=== PATIENT | female | born 1980 | race Caucasian/White ===

== ENCOUNTER 2020-09-15 17:53 | Outpatient (REF) | payer BC, SELFPAY | END 2020-09-15 17:54 | disposition home or self-care (01) | LOC: HO.LAB 17:53 | PROVIDERS: PCP Pediatrics; Visit Provider Internal Medicine | DX: Z20.828 Contact with and (suspected) exposure to other viral communicable diseases (principal) | CPT/HCPCS: C9803; U0003 ==

== ENCOUNTER 2021-04-22 10:08 | Emergency (ER) | payer BC, SELFPAY ==
--- NOTE | ~2021-04-22 | CT_ITS ---
EXAMINATION: CT ABDOMEN AND PELVIS WITH CONTRAST CLINICAL INFORMATION: Left lower quadrant pain COMPARISON: None TECHNIQUE: Multidetector volumetric images were obtained from the superior aspect of the liver through the pubic symphysis following administration 85 mL of Omnipaque 350 intravenous contrast. Sagittal and coronal reformatted images were obtained on the technologist's workstation. Oral contrast: No This CT examination was performed using dose optimization techniques as appropriate, variously including the following: *Automated exposure control *Adjustment of mA and/or kV according to patient size (this includes techniques or standardized protocols for targeted exams where dose is matched to indication/reason for exam; i.e. extremities or head) *Use of iterative reconstruction technique DLP: 1000 mGy-cm FINDINGS: LUNG BASES: The visualized lung bases are unremarkable. Symmetrical prominence of the hemidiaphragms anteriorly without any discrete lesion. This is likely within normal variation. LIVER, GALLBLADDER, AND BILIARY TREE: The liver is normal in size, shape, and attenuation. No focal hepatic lesion or biliary ductal dilatation is present. The gallbladder is unremarkable with no evidence of radiopaque gallstones, gallbladder wall thickening, or obvious pericholecystic inflammatory changes. PANCREAS: Unremarkable. SPLEEN: Unremarkable. ADRENAL GLANDS: Unremarkable. KIDNEYS AND URETERS: The kidneys are normal in size, shape, and attenuation. No hydronephrosis, hydroureter, or calculi seen. No perinephric stranding. BLADDER: Unremarkable. GASTROINTESTINAL TRACT: The small and large bowel are unremarkable. The appendix is unremarkable. ABDOMINAL WALL: Small fat-containing umbilical hernia along with a small amount of fluid within the hernia sac. No bowel involvement. LYMPH NODES: Normal. VASCULAR: Unremarkable. PELVIC VISCERA: There is a right-sided ovarian unilocular cystic-appearing lesion measuring up to 5.1 cm. No definite enhancing components. Uterus is deviated to the left of midline. No acute inflammatory changes. No hydrosalpinx. Prominence of endometrium which may related to secretory phase of the menstrual cycle. OSSEOUS STRUCTURES: Unremarkable. CT/CT abdomen pelvis w con IMPRESSION: Normal appendix. No evidence for diverticular disease. There is a 5.1 cm right ovarian cystic lesion. Based on symptomatology, ultrasound correlation should be considered.
[2021-04-22 10:21] VITALS: BP 127/76; PULSE 76; RESP 18; TEMP 36.8; O2SAT 98; BMI 39.1
[2021-04-22 11:05] VITALS: BP 140/86; PULSE 71; RESP 20; TEMP 37; O2SAT 98
--- NOTE | 2021-04-22 11:06 | ED_ITS ---
HPI - Abdominal Pain General Chief Complaint: Abdominal Pain Stated Complaint: abd pain Time Seen by Provider: 04/22/21 11:05 Source: patient Mode of arrival: ambulatory Limitations: no limitations History of Present Illness MD elicited complaint: abdominal pain Pertinent past history: other (GERD) Pain Consistency: constant Location: epigastric Severity: moderate Quality: fullness and dull Radiation: epigastric Migration to: no migration Exacerbating factors: eating Relieving factors: nothing Context: history of similar episodes (but now has loose stools and L sided pain which is new) Associated symptoms: nausea, vomiting and diarrhea Related Data Previous Rx's Medication Instructions Recorded dicyclomine 20 mg PO TID PRN #30 tab 04/22/21 ondansetron 4 mg PO Q8H PRN #20 tab 04/22/21 sucralfate [Carafate] 5 ml PO TID #1000 ml 04/22/21 Allergies Allergy/AdvReac Type Severity Reaction Status Date / Time Penicillins Allergy Rash Verified 04/22/21 10:21 Review of Systems Review of Systems Constitutional : No Weight loss, No Fever, No Chills ENT/Mouth : No sore throat, No Rhinorrhea Eyes: No Swelling, No Redness Cardiovascular : No Chest Pain, No SOB, NoEdema Respiratory : No Cough, No Sputum, No Wheezing Gastrointestinal : Positive Nausea, Positive Vomiting, positive Diarrhea, positi ve abdominal Pain, No Hematochezia, No Melena Genitourinary : No Dysuria, No Urinary Frequency, No Hematuria, No Urgency Musculoskeletal : No joint pain, No Myalgias, No Joint Swelling Skin : No Skin Lesions, No rash Neuro : No Weakness, No Numbness, No Dizziness, No Headache Psych : No Anxiety/Panic, No Depression Heme/Lymph: No Bruising, No Lymphadenopathy Endocrine : No Polyuria, No Polydipsia All other systems reviewed and are negative. Physical Exam Vital Signs: Vital Signs: Last Vital Signs Temp 98.6 F 04/22/21 11:05 Pulse 71 04/22/21 11:05 Resp 20 04/22/21 11:05 BP 140/86 H 04/22/21 11:05 Pulse Ox 98 04/22/21 11:05 Body Mass Index 39.1 Appearance: Alert. Oriented X3. No acute distress. Eyes: Pupils equal, round and reactive to light. ENT: Pharynx normal. Neck: Normal inspection. Neck supple. CVS: Normal heart rate and rhythm. Pulses normal. Respiratory: No respiratory distress. Breath sounds normal. Abdomen: Soft and with distention ttp in LLQ and epigastric area no rebound or guarding Skin: Skin warm and dry. Normal skin color. Normal skin turgor. Extremities: No lower extremity edema. No calf ttp Neuro: Oriented X 3. No motor deficit. No sensory deficit. Course Course Course Narrative: no acute findings other than ovarian cyst - discussed need for [employer] follow up to make sure this isn't a mass, will start on carafte and dicyclomine MDM - Abdominal Pain MDM Narrative Medical decision making narrative: 40 yo female with hx of GERD takes PPI 40mg daily here with LLQ pain and abdominal pain which is new for her, reports compliance with medications but notes her stool is soft with n/v/d and she has LLQ pain which is new at this time will need labs, CT scan for colitis, IV morphine dispo per results and findings. Lab Data Result diagrams: 04/22/21 11:39 04/22/21 11:40 Labs: Lab Results 04/22/21 04/22/21 04/22/21 Range/Units 11:39 11:40 11:40 WBC 8.5 (4.8-10.8) X10*3/uL RBC 4.28 (4.20-5.50) X10*6/uL Hgb 12.9 (12.0-16.0) g/dl Hct 39.3 (37-47) % MCV 91.8 (80-98) fL MCH 30.1 (27.0-33.0) pg MCHC 32.8 (31.0-35.0) g/dl RDW 12.7 (11.0-16.0) % Plt Count 267 (160-400) X10*3/uL MPV 10.7 (9.4-12.3) fL Immature Gran % (Auto) 0.1 (0.0-0.4) % Neut % (Auto) 68.5 (45-73) % Lymph % (Auto) 23.4 (20-40) % Dare % (Auto) 6.9 (2-11) % Eos % (Auto) 0.7 (0-4) % Baso % (Auto) 0.4 (0-2) % Lymph # (Auto) 2.0 (1.2-4.9) X10*3/uL Dare # (Auto) 0.6 (0.1-1.2) X10*3/uL Eos # (Auto) 0.1 (0.0-0.4) X10*3/uL Baso # (Auto) 0.0 (0.0-0.2) X10*3/uL Abs Immat Gran (auto) 0.01 (0.00-0.03) X10*3/uL Absolute Neuts (auto) 5.8 (2.0-8.3) X10*3/uL Absolute Nucleated RBC 0.000 (0.0-0.012) X10*3/uL Nucleated RBC % (auto) 0.0 (0.0-0.2) /100WBC Sodium Cancelled 138 Potassium Cancelled 4.4 Chloride Cancelled 106 Carbon Dioxide Cancelled 24 Anion Gap Cancelled 12 BUN Cancelled 12 Creatinine Cancelled 0.85 Estim Creat Clear Calc Cancelled 104.6 Estimated GFR Cancelled > 60 Random Glucose Cancelled 100 Calcium Cancelled 9.1 Magnesium 2.0 (1.6-2.6) mg/dL Total Bilirubin 0.4 (0.0-1.0) mg/dL Direct Bilirubin < 0.2 (0.0-0.5) mg/dL AST 23 (5-31) U/L ALT 25 (0-31) U/L Alkaline Phosphatase 43 (39-117) U/L Total Protein 6.9 (6.5-8.0) g/dL Albumin 4.0 (3.5-5.0) g/dL Lipase 27 (8-78) U/L Urine Color Urine Appearance Urine pH (5.0-8.0) Ur Specific [place] (1.005-1.025) Urine Protein (NEG-TRACE) MG/DL Urine Glucose (UA) (NEG) MG/DL Urine Ketones (NEG) MG/DL Urine Blood (NEG) Urine Nitrite (NEG) Ur Leukocyte Esterase (NEG) Urine Test (NEGATIVE) 04/22/21 04/22/21 Range/Units 11:42 11:42 WBC (4.8-10.8) X10*3/uL RBC (4.20-5.50) X10*6/uL Hgb (12.0-16.0) g/dl Hct (37-47) % MCV (80-98) fL MCH (27.0-33.0) pg MCHC (31.0-35.0) g/dl RDW (11.0-16.0) % Plt Count (160-400) X10*3/uL MPV (9.4-12.3) fL Immature Gran % (Auto) (0.0-0.4) % Neut % (Auto) (45-73) % Lymph % (Auto) (20-40) % Dare % (Auto) (2-11) % Eos % (Auto) (0-4) % Baso % (Auto) (0-2) % Lymph # (Auto) (1.2-4.9) X10*3/uL Dare # (Auto) (0.1-1.2) X10*3/uL Eos # (Auto) (0.0-0.4) X10*3/uL Baso # (Auto) (0.0-0.2) X10*3/uL Abs Immat Gran (auto) (0.00-0.03) X10*3/uL Absolute Neuts (auto) (2.0-8.3) X10*3/uL Absolute Nucleated RBC (0.0-0.012) X10*3/uL Nucleated RBC % (auto) (0.0-0.2) /100WBC Sodium Potassium Chloride Carbon Dioxide Anion Gap BUN Creatinine Estim Creat Clear Calc Estimated GFR Random Glucose Calcium Magnesium (1.6-2.6) mg/dL Total Bilirubin (0.0-1.0) mg/dL Direct Bilirubin (0.0-0.5) mg/dL AST (5-31) U/L ALT (0-31) U/L Alkaline Phosphatase (39-117) U/L Total Protein (6.5-8.0) g/dL Albumin (3.5-5.0) g/dL Lipase (8-78) U/L Urine Color STRAW Urine Appearance HAZY Urine pH 6.0 (5.0-8.0) Ur Specific [place] 1.010 (1.005-1.025) Urine Protein NEG (NEG-TRACE) MG/DL Urine Glucose (UA) NEG (NEG) MG/DL Urine Ketones NEG (NEG) MG/DL Urine Blood NEG (NEG) Urine Nitrite NEG (NEG) Ur Leukocyte Esterase NEG (NEG) Urine Test NEGATIVE (NEGATIVE) Discharge Plan Discharge Clinical Impression: Abdominal pain Qualifiers: Abdominal location: epigastric Qualified Code(s): R10.13 - Epigastric pain Ovarian cyst Qualifiers: Laterality: right Qualified Code(s): N83.201 - Unspecified ovarian cyst, right side Patient Disposition: Home, Self-Care Instructions: Ovarian Cyst (ED), Abdominal Pain (ED) Additional Instructions: return to ED for any worsening symptoms or concerns PELVIC VISCERA: There is a right-sided ovarian unilocular cystic-appearing lesion measuring up to 5.1 cm. No definite enhancing components. Uterus is deviated to the left of midline. No acute inflammatory changes. No hydrosalpinx. Prominence of endometrium which may related to secretory phase of the menstrual cycle. GIVEN YOUR SYMPTOMS PLEASE FOLLOW UP WITH OBGYN FOR YOUR CYST AND YOUR GI DOCTOR FOR COLONOSCOPY Prescriptions: New dicyclomine 20 mg tablet 20 mg PO TID PRN (Reason: abdominal discomfort) Qty: 30 RF: 0 ondansetron 4 mg tablet,disintegrating 4 mg PO Q8H PRN (Reason: nausea and vomiting) Qty: 20 RF: 0 sucralfate [Carafate] 100 mg/mL suspension 5 ml PO TID Qty: 1000 RF: 0 Stand Alone Forms: Work/School Release [facility] Past Medical History Attestation statement: The following information was validated with the patient. Medical History GERD (gastroesophageal reflux disease) Social History Social History Patient Tobacco Use Status: Never used Tobacco Use of substances other than those prescribed or required for medical reasons: No Advance Directives: No Advance Directives Information Provided: No Patient : No
[2021-04-22 11:48] LABS: MANUAL DIFF FLAG NO
[2021-04-22] MEDS: Morphine Sulfate 4 MG/ML CARTRIDGE IVPUSH (11:49)
[2021-04-22] MEDS: 0.9 % Sodium Chloride 1,000 ML 999 ML IVCONT (11:49)
[2021-04-22] MEDS: ondansetron HCL 4 MG/2 ML VIAL IVPUSH (11:49)
[2021-04-22 11:51] LABS: Appearance Urine HAZY; Color Urine STRAW; Glucose Urine UA NEG (NEG); Leukocyte Esterase Urine NEG (NEG); Nitrite Urine NEG (NEG); Urine Blood NEG (NEG); Urine Ketones NEG (NEG); Urine Protein NEG (NEG-TRACE)
[2021-04-22 11:53] LABS: Basophils Percent Auto 0.4 % (0-2); Eosinophils Absolute Auto 0.1 X10*3/uL (0.0-0.4); Eosinophils Percent Auto 0.7 % (0-4); Hematocrit 39.3 % (37-47); Hemoglobin 12.9 g/dl (12.0-16.0); Imm Gran Abs Auto 0.01 X10*3/uL (0.00-0.03); Imm Gran Pct Auto 0.1 % (0.0-0.4); Lymphocytes Percent Auto 23.4 % (20-40); Mean Corpuscular HGB Conc 32.8 g/dl (31.0-35.0); Mean Corpuscular Hemoglobin 30.1 pg (27.0-33.0); Mean Corpuscular Volume 91.8 fL (80-98); Mean Platelet Volume 10.7 fL (9.4-12.3); Monocytes Absolute Auto 0.6 X10*3/uL (0.1-1.2); Monocytes Percent Auto 6.9 % (2-11); Neutrophils Absolute Auto 5.8 X10*3/uL (2.0-8.3); Neutrophils Percent Auto 68.5 % (45-73); Platelet Count 267 X10*3/uL (160-400); Red Blood Count 4.28 X10*6/uL (4.20-5.50); Red Cell Distribution Width 12.7 % (11.0-16.0); White Blood Count 8.5 X10*3/uL (4.8-10.8)
[2021-04-22 11:54] LABS: UPreg QC Valid YES; Urine Pregnancy NEGATIVE (NEGATIVE)
--- NOTE | 2021-04-22 11:57 | PC.NURSE ---
Pt alert oriented x3, VSS, LSCTA. + BS x4. Pt reports abd pain that radiates to epigrastric, feeling full and bloated. She states she had similar episodes in the past but now has loose stools and L sided pain. IV line established, labs drawn, fluids hung, no apparent distress, pt resting quietly awaiting CT scan.
[2021-04-22 12:17] LABS: Alanine Aminotransferase 25 U/L (0-31); Alkaline Phosphatase 43 U/L (39-117); Anion Gap 12 (12-20); Aspartate Amino Transferase 23 U/L (5-31); Bilirubin Direct < 0.2 mg/dL (0.0-0.5); Bilirubin Total 0.4 mg/dL (0.0-1.0); Blood Urea Nitrogen 12 mg/dL (9-16); Calcium 9.1 mg/dL (8.4-10.2); Carbon Dioxide 24 mmol/L (22-29); Chloride 106 mmol/L (96-108); Creatinine Clr Calc Pharmacy 104.6; Estimated Glomerular Filt Rate > 60; Glucose Random 100 mg/dL (60-115); Lipase 27 U/L (8-78); Potassium 4.4 mmol/L (3.3-5.1); Sodium 138 mmol/L (135-145); Total Protein 6.9 g/dL (6.5-8.0)
[2021-04-22] MEDS: iohexoL 350 MG/ML 100 ML INFUS..BTL IV (13:42)
== END 2021-04-22 14:55 | disposition home or self-care (01) ==
PROVIDERS: Emergency Provider Emergency Medicine; PCP Pediatrics
DX: R10.31 Right lower quadrant pain (principal); N83.201 Unspecified ovarian cyst, right side; K21.9 Gastro-esophageal reflux disease without esophagitis; Z79.899 Other long term (current) drug therapy
CPT/HCPCS: 36415; 74177; 80048; 80076; 81003; 81025; 83690; 83735; 85025; 96361; 96374; 96375; 99284; J2270; J2405; Q9967

== ENCOUNTER 2021-11-16 09:59 | Emergency (ER) | payer BC, SELFPAY ==
--- NOTE | ~2021-11-16 | CT_ITS ---
EXAMINATION: CT ANGIOGRAM OF THE CHEST WITH AND WITHOUT CONTRAST (CT PULMONARY ANGIOGRAM FOR PE) CLINICAL INFORMATION: Reason for Exam Covid. Near syncope. PE? COMPARISON: Chest radiograph 11/16/[address] abdomen pelvis 04/22/2021 TECHNIQUE: Prior to contrast administration, noncontrast localization images were obtained. Subsequently, multidetector volumetric imaging was performed from the thoracic inlet to below the diaphragms following the administration of 71 mL Omnipaque 350 intravenous contrast. No contrast reaction reported Sagittal, coronal, and MIP oblique sagittal reformatted images were obtained on the CT workstation, uploaded to PACS, and reviewed. This CT examination was performed using dose optimization techniques as appropriate, variously including the following: *Automated exposure control *Adjustment of mA and/or kV according to patient size (this includes techniques or standardized protocols for targeted exams where dose is matched to indication/reason for exam; i.e. extremities or head) *Use of iterative reconstruction technique Total exam dose-length product 488 mGy-cm FINDINGS: QUALITY OF STUDY/CONTRAST BOLUS: Satisfactory. PULMONARY ARTERIES: No central or segmental pulmonary emboli. THORACIC AORTA: No aneurysm or dissection. LUNG: Multifocal small groundglass infiltrates are noted in all lobes of the lung bilaterally. PLEURA: No pleural effusion or pneumothorax. MEDIASTINUM: Normal heart size. No pericardial effusion. No hilar or mediastinal lymphadenopathy. No evidence of septal bowing or right heart strain. CHEST WALL/AXILLA: No axillary or internal mammary lymphadenopathy. OSSEOUS STRUCTURES: No acute or suspicious osseous abnormality. UPPER ABDOMEN: Tiny hiatal hernia is present. I suspect there may be hepatic steatosis. The time of the prior CT scan, the liver measured 21.6 cm in greatest cephalocaudad dimension The spleen is borderline enlarged measuring 12.3 cm in greatest length, previously measuring 11.9 cm. No reflux of contrast into the hepatic veins to suggest elevated right heart pressures. CT/CT angio chest PE protocol IMPRESSION: 1. No evidence of pulmonary emboli 2. Commonly reported imaging features of Covid 19 or viral pneumonia are present with multifocal predominantly peripheral groundglass infiltrates. Other processes such as influenza pneumonia or organizing pneumonia, as can be seen with drug toxicity and connective tissue disease, can cause a similar imaging pattern. VTE: negative
--- NOTE | ~2021-11-16 | XR_ITS ---
EXAMINATION: XR CHEST CLINICAL INFORMATION: Dyspnea on exertion. Covid infection. COMPARISON: None TECHNIQUE: 2 views of the chest were obtained. FINDINGS: The cardiac and mediastinal contours are normal. The lungs are clear. There is no pleural effusion or pneumothorax. There are degenerative changes of the spine. XR/XR chest 2V IMPRESSION: Unremarkable examination.
[2021-11-16 11:51] VITALS: BP 156/82; PULSE 77; RESP 19; TEMP 36.6; O2SAT 97; BMI 37.4
[2021-11-16 13:40] LABS: Appearance Urine HAZY; Color Urine STRAW; Glucose Urine UA NEG (NEG); Leukocyte Esterase Urine NEG (NEG); Nitrite Urine NEG (NEG); Specific Gravity - Urine <= 1.005 (1.005-1.025); UPreg QC Valid YES; Urine Blood NEG (NEG); Urine Ketones NEG (NEG); Urine Protein NEG (NEG-TRACE)
[2021-11-16 13:42] LABS: Urine Pregnancy NEGATIVE (NEGATIVE)
[2021-11-16 13:53] LABS: Anion Gap 12 (12-20); Blood Urea Nitrogen 8 mg/dL (9-16); Calcium 9.1 mg/dL (8.4-10.2); Carbon Dioxide 29 mmol/L (22-29); Chloride 103 mmol/L (96-108); Creatinine Clr Calc Pharmacy 107.4; Estimated Glomerular Filt Rate > 60; Glucose Random 87 mg/dL (60-115); Potassium 4.2 mmol/L (3.3-5.1); Sodium 140 mmol/L (135-145)
--- NOTE | 2021-11-16 14:30 | ED_ITS ---
HPI - URI/Sore Throat General Chief Complaint: Upper Respiratory Symptoms Stated Complaint: Pulmonary embolism? Time Seen by Provider: 11/16/21 14:09 Source: patient Mode of arrival: ambulatory Limitations: no limitations History of Present Illness HPI Narrative: Patient presents to the ED for covid symptoms. Patient states this is her 8th day having covid and states she is improving with having just sinus congestion with right ear pain. Patient came to the ED for near syncopal event that occurred yesterday while trying to lift some boxes in her basement while feeling fatigue. Patient states yesterday she was trying to lift some boxes and almost passed out. Patient states she did not lose consciousness, fa ll to the ground, or pass out. Patient presently denies any chest pain, leg swelling, calf pain, or shortness of breath at rest. Patient states due to coughing at times she would have shortness of breath on exertion. Patient denies any pleuritic chest pain Related Data Previous Rx's Medication Instructions Recorded dicyclomine 20 mg tablet 20 mg PO TID PRN #30 tab 04/22/21 ondansetron 4 mg disintegrating 4 mg PO Q8H PRN #20 tab 04/22/21 tablet sucralfate 100 mg/mL oral 5 ml PO TID #1000 ml 04/22/21 suspension (Carafate) azithromycin 250 mg tablet See Rx Instructions .ROUTE 11/16/21 .COMPLEX #6 tab dexamethasone 6 mg tablet 6 mg PO DAILY #7 tab 11/16/21 (Decadron) doxycycline hyclate 100 mg tablet 100 mg PO BID 7 Days #14 tab 11/16/21 triamcinolone acetonide 55 mcg 2 spray INTRANASAL DAILY 7 Days 11/16/21 nasal spray aerosol (Nasacort) #16.9 ml Allergies Allergy/AdvReac Type Severity Reaction Status Date / Time Penicillins Allergy Rash Verified 04/22/21 10:21 Review of Systems Review of Systems: Coughing, ear pain, sinus congestion Yes all other systems are reviewed and are negative [facility] Past Medical History Medical History (Updated 11/16/21 @ 18:18 by GIOVANNI Devine) Depression GERD (gastroesophageal reflux disease) HTN (hypertension) Social History Social History Patient Tobacco Use Status: Never used Tobacco Advance Directives: No Advance Directives Information Provided: No Patient : No Physical Exam Vital Signs: Vital Signs: Last Vital Signs Temp 98.5 F 11/16/21 18:01 Pulse 78 11/16/21 18:01 Resp 18 11/16/21 18:01 BP 130/76 11/16/21 18:01 Pulse Ox 97 11/16/21 18:01 BMI result Body Mass Index 37.4 Const: General: cooperative, healthy appearing, comfortable, no acute distress, well developed, alert and awake Orientation/consciousness: patient oriented x3 HENMT: Head: Yes normal to inspection, Yes No palpable skull fracture present, Yes normocephalic, Yes atraumatic and No abrasion Eyes: General: appearance normal, both eyes and all related structures Neck: Neck: Yes normal visual inspection, Yes full ROM, Yes no lymphadenopathy, Yes no meningeal signs, Yes trachea midline, Yes supple, No anterior neck swelling and No tender Chest: Chest palpation & inspection: normal inspection of the chest and normal palpation of entire chest wall Resp: Effort & Inspection: normal respiratory effort and able to speak in complete sentences Auscultation: clear to auscultation bilaterally Cardio: Jugular venous distension: no JVD Heart sounds: S1 normal heart sound present and S2 normal heart sound present GI: Inspection: Yes normal to inspection and No abdominal wall ecchymosis Palpation (GI): Soft to palpation, not firm, nontender, no guarding and not rigid : General: No CVA tenderness and Yes no CVA tenderness Back/Spine/Pelvis: Back: no CVA tenderness, No CVA tenderness and No back tenderness Skin: General skin exam: no rashes or lesions noted and elasticity normal Neuro: General: patient oriented x3, gait normal, no meningeal signs and CN's II-XI intact bilaterally Cranial nerves: Yes CN's II-XII intact bilaterally Extrem: Other: Lower extremities negative for swelling, pitting edema, calf tenderness General: Yes normal to inspection and Yes full ROM Psych: Appearance: grossly normal, well kempt and not disheveled Course Course Course Narrative: Patient wrapped macro screen for labs and x-ray waiting for the results. Patient presently is well-appearing not in any distress. Reevaluation(s) Reevaluation #1: Patient's D-dimer came back elevated. Patient troponin and EKG normal. Patient COVID positive so patient will be sent for chest CTA to rule out PE. Time: 14:51 Reevaluation #2: Chest CTA came back negative for PE. Positive for COVID pneumonia. Patient is not hypoxic. Patient will be discharged with antibiotics and also Nasacort for sinus congestion. Time: 18:16 MDM - URI/Sore Throat MDM Narrative Medical decision making narrative: COVID pneumonia Lab Data Result diagrams: 11/16/21 14:51 11/16/21 13:25 Labs: Lab Results 11/16/21 11/16/21 11/16/21 Range/Units 13:25 13:25 13:25 WBC (4.8-10.8) X10*3/uL RBC (4.20-5.50) X10*6/uL Hgb (12.0-16.0) g/dl Hct (37.0-47.0) % MCV (80.0-98.0) fL MCH (27.0-33.0) pg MCHC (31.0-35.0) g/dl RDW (11.0-16.0) % Plt Count (160-400) X10*3/uL MPV (9.4-12.3) fL Immature Gran % (Auto) (0.0-0.4) % Neut % (Auto) (45-73) % Lymph % (Auto) (20-40) % [place] % (Auto) (2-11) % Eos % (Auto) (0-4) % Baso % (Auto) (0-2) % Lymph # (Auto) (1.2-4.9) X10*3/uL [place] # (Auto) (0.1-1.2) X10*3/uL Eos # (Auto) (0.0-0.4) X10*3/uL Baso # (Auto) (0.0-0.2) X10*3/uL Abs Immat Gran (auto) (0.00-0.03) X10*3/uL Absolute Neuts (auto) (2.0-8.3) x10*3/uL Absolute Nucleated RBC (0.0-0.012) X10*3/uL Nucleated RBC % (auto) (0.0-0.2) /100WBC PT (9.9-13.0) SEC INR (0.9-1.1) APTT (24.1-38.0) SEC D-Dimer High Sensitivty NG/ML Sodium 140 (135-145) mmol/L Potassium 4.2 (3.3-5.1) mmol/L Chloride 103 (96-108) mmol/L Carbon Dioxide 29 (22-29) mmol/L Anion Gap 12 (12-20) BUN 8 L (9-16) mg/dL Creatinine 0.80 (0.5-1.4) mg/dL Estim Creat Clear Calc 107.4 Estimated GFR > 60 Random Glucose 87 (60-115) mg/dL Calcium 9.1 (8.4-10.2) mg/dL Troponin I High Sens (<3.5-17.0) ng/L B-Natriuretic Peptide (<100) pg/mL Urine Color STRAW Urine Appearance HAZY Urine pH 7.0 (5.0-8.0) Ur Specific [place] <= 1.005 (1.005-1.025) Urine Protein NEG (NEG-TRACE) MG/DL Urine Glucose (UA) NEG (NEG) MG/DL Urine Ketones NEG (NEG) MG/DL Urine Blood NEG (NEG) Urine Nitrite NEG (NEG) Ur Leukocyte Esterase NEG (NEG) Urine Test NEGATIVE (NEGATIVE) 11/16/21 11/16/21 11/16/21 Range/Units 14:51 14:51 14:51 WBC 6.5 (4.8-10.8) X10*3/uL RBC 4.44 (4.20-5.50) X10*6/uL Hgb 13.4 (12.0-16.0) g/dl Hct 40.7 (37.0-47.0) % MCV 91.7 (80.0-98.0) fL MCH 30.2 (27.0-33.0) pg MCHC 32.9 (31.0-35.0) g/dl RDW 11.9 (11.0-16.0) % Plt Count 252 (160-400) X10*3/uL MPV 10.0 (9.4-12.3) fL Immature Gran % (Auto) 0.3 (0.0-0.4) % Neut % (Auto) 63.4 (45-73) % Lymph % (Auto) 28.3 (20-40) % [place] % (Auto) 7.1 (2-11) % Eos % (Auto) 0.6 (0-4) % Baso % (Auto) 0.3 (0-2) % Lymph # (Auto) 1.8 (1.2-4.9) X10*3/uL [place] # (Auto) 0.5 (0.1-1.2) X10*3/uL Eos # (Auto) 0.0 (0.0-0.4) X10*3/uL Baso # (Auto) 0.0 (0.0-0.2) X10*3/uL Abs Immat Gran (auto) 0.02 (0.00-0.03) X10*3/uL Absolute Neuts (auto) 4.1 (2.0-8.3) x10*3/uL Absolute Nucleated RBC 0.000 (0.0-0.012) X10*3/uL Nucleated RBC % (auto) 0.0 (0.0-0.2) /100WBC PT (9.9-13.0) SEC INR (0.9-1.1) APTT (24.1-38.0) SEC D-Dimer High Sensitivty 401 NG/ML Sodium (135-145) mmol/L Potassium (3.3-5.1) mmol/L Chloride (96-108) mmol/L Carbon Dioxide (22-29) mmol/L Anion Gap (12-20) BUN (9-16) mg/dL Creatinine (0.5-1.4) mg/dL Estim Creat Clear Calc Estimated GFR Random Glucose (60-115) mg/dL Calcium (8.4-10.2) mg/dL Troponin I High Sens < 3.5 (<3.5-17.0) ng/L B-Natriuretic Peptide 13 (<100) pg/mL Urine Color Urine Appearance Urine pH (5.0-8.0) Ur Specific [place] (1.005-1.025) Urine Protein (NEG-TRACE) MG/DL Urine Glucose (UA) (NEG) MG/DL Urine Ketones (NEG) MG/DL Urine Blood (NEG) Urine Nitrite (NEG) Ur Leukocyte Esterase (NEG) Urine Test (NEGATIVE) 11/16/21 Range/Units 14:51 WBC (4.8-10.8) X10*3/uL RBC (4.20-5.50) X10*6/uL Hgb (12.0-16.0) g/dl Hct (37.0-47.0) % MCV (80.0-98.0) fL MCH (27.0-33.0) pg MCHC (31.0-35.0) g/dl RDW (11.0-16.0) % Plt Count (160-400) X10*3/uL MPV (9.4-12.3) fL Immature Gran % (Auto) (0.0-0.4) % Neut % (Auto) (45-73) % Lymph % (Auto) (20-40) % [place] % (Auto) (2-11) % Eos % (Auto) (0-4) % Baso % (Auto) (0-2) % Lymph # (Auto) (1.2-4.9) X10*3/uL [place] # (Auto) (0.1-1.2) X10*3/uL Eos # (Auto) (0.0-0.4) X10*3/uL Baso # (Auto) (0.0-0.2) X10*3/uL Abs Immat Gran (auto) (0.00-0.03) X10*3/uL Absolute Neuts (auto) (2.0-8.3) x10*3/uL Absolute Nucleated RBC (0.0-0.012) X10*3/uL Nucleated RBC % (auto) (0.0-0.2) /100WBC PT 10.8 (9.9-13.0) SEC INR 1.0 (0.9-1.1) APTT 31.3 (24.1-38.0) SEC D-Dimer High Sensitivty NG/ML Sodium (135-145) mmol/L Potassium (3.3-5.1) mmol/L Chloride (96-108) mmol/L Carbon Dioxide (22-29) mmol/L Anion Gap (12-20) BUN (9-16) mg/dL Creatinine (0.5-1.4) mg/dL Estim Creat Clear Calc Estimated GFR Random Glucose (60-115) mg/dL Calcium (8.4-10.2) mg/dL Troponin I High Sens (<3.5-17.0) ng/L B-Natriuretic Peptide (<100) pg/mL Urine Color Urine Appearance Urine pH (5.0-8.0) Ur Specific [place] (1.005-1.025) Urine Protein (NEG-TRACE) MG/DL Urine Glucose (UA) (NEG) MG/DL Urine Ketones (NEG) MG/DL Urine Blood (NEG) Urine Nitrite (NEG) Ur Leukocyte Esterase (NEG) Urine Test (NEGATIVE) ECG Data Interpretation: Normal sinus rhythm. Ventricular rate 71. Pr interval 154. QRS 92. QTC 460. Negative STEMI Discharge Plan Discharge Clinical Impression: COVID-19 Patient Disposition: Home, Self-Care Instructions: COVID-19 (Coronavirus Disease 2019) (ED) Additional Instructions: Your chest CT scan came back negative for pulmonary embolus. Chest CT scan positive for COVID pneumonia. Continues self-isolation. Return to the ED for any chest pain, shortness of breath, weakness, dizziness, calf pain, coughing up blood, or any other concerning symptoms. Please follow up with PCP Prescriptions: New azithromycin 250 mg tablet See Rx Instructions .ROUTE .COMPLEX Qty: 6 RF: 0 triamcinolone acetonide [Nasacort] 55 mcg aerosol,spray 2 spray intranasal DAILY 7 Days Qty: 16.9 RF: 0 dexamethasone [Decadron] 6 mg tablet 6 mg PO DAILY Qty: 7 RF: 0 doxycycline hyclate 100 mg tablet 100 mg PO BID 7 Days Qty: 14 RF: 0 No Action dicyclomine 20 mg tablet 20 mg PO TID PRN (Reason: abdominal discomfort) Qty: 30 RF: 0 ondansetron 4 mg tablet,disintegrating 4 mg PO Q8H PRN (Reason: nausea and vomiting) Qty: 20 RF: 0 sucralfate [Carafate] 100 mg/mL suspension 5 ml PO TID Qty: 1000 RF: 0 Stand Alone Forms: Work/School Release Print Language: [place]
[2021-11-16 15:00] LABS: MANUAL DIFF FLAG NO
[2021-11-16 15:01] LABS: Basophils Percent Auto 0.3 % (0-2); Eosinophils Percent Auto 0.6 % (0-4); Hematocrit 40.7 % (37.0-47.0); Hemoglobin 13.4 g/dl (12.0-16.0); Imm Gran Abs Auto 0.02 X10*3/uL (0.00-0.03); Imm Gran Pct Auto 0.3 % (0.0-0.4); Lymphocytes Absolute Auto 1.8 X10*3/uL (1.2-4.9); Lymphocytes Percent Auto 28.3 % (20-40); Mean Corpuscular HGB Conc 32.9 g/dl (31.0-35.0); Mean Corpuscular Hemoglobin 30.2 pg (27.0-33.0); Mean Corpuscular Volume 91.7 fL (80.0-98.0); Monocytes Absolute Auto 0.5 X10*3/uL (0.1-1.2); Monocytes Percent Auto 7.1 % (2-11); Neutrophils Absolute Auto 4.1 x10*3/uL (2.0-8.3); Neutrophils Percent Auto 63.4 % (45-73); Platelet Count 252 X10*3/uL (160-400); Red Blood Count 4.44 X10*6/uL (4.20-5.50); Red Cell Distribution Width 11.9 % (11.0-16.0); White Blood Count 6.5 X10*3/uL (4.8-10.8)
[2021-11-16 15:11] LABS: Prothrombin Time 10.8 SEC (9.9-13.0)
[2021-11-16 15:13] LABS: D Dimer High Sensitivity 401 NG/ML; Partial Thromboplastin Time 31.3 SEC (24.1-38.0)
[2021-11-16 15:21] LABS: B Type Natriuretic Peptide 13 pg/mL (<100); Troponin-I High Sensitivity < 3.5 ng/L (<3.5-17.0)
--- NOTE | 2021-11-16 15:26 | ECG_ITS ---
Test Reason : SHORTNESS OF BREATH Blood Pressure : / mmHG Vent. Rate : 071 BPM Atrial Rate : 071 BPM P-R Int : 154 ms QRS Dur : 092 ms QT Int : 424 ms P-R-T Axes : 011 000 013 degrees QTc Int : 460 ms Normal sinus rhythm Normal ECG No previous ECGs available Referred By: Thien Ansari Electronically Signed By:Anastacio Cash
[2021-11-16 15:59] VITALS: BP 126/83; PULSE 76; RESP 18; TEMP 36.9; O2SAT 98
[2021-11-16] MEDS: iohexoL 350 MG/ML 100 ML INFUS..BTL IV (16:53)
[2021-11-16 18:01] VITALS: BP 130/76; PULSE 78; RESP 18; TEMP 36.9; O2SAT 97
== END 2021-11-16 19:04 | disposition home or self-care (01) ==
PROVIDERS: Physician Assistant; Emergency Provider Emergency Medicine; PCP Pediatrics
DX: U07.1 COVID-19 (principal); J12.82 Pneumonia due to coronavirus disease 2019; I10 Essential (primary) hypertension; R79.1 Abnormal coagulation profile
CPT/HCPCS: 36415; 71046; 71275; 80048; 81003; 81025; 83880; 84484; 85025; 85379; 85610; 85730; 93005; 99284; Q9967

== ENCOUNTER 2023-02-24 12:55 | Emergency (ER) | payer OTHER, SELFPAY ==
--- NOTE | ~2023-02-24 | CT_ITS ---
EXAMINATION: CT HEAD WITHOUT CONTRAST CLINICAL INFORMATION: Hypertension, weakness and confusion. COMPARISON: None available. TECHNIQUE: Contiguous axial imaging was performed from the skull base to vertex without intravenous administration of contrast. This CT examination was performed using dose optimization techniques as appropriate, variously including the following: *Automated exposure control *Adjustment of mA and/or kV according to patient size (this includes techniques or standardized protocols for targeted exams where dose is matched to indication/reason for exam; i.e. extremities or head) *Use of iterative reconstruction technique DLP: 686 mGy-cm FINDINGS: There is no acute intra-axial, extra-axial bleed, masses or midline shift. There is no acute infarction evolution. There is no edema. The mg to white matter difference is maintained normal. The lateral ventricles are symmetrical in size and configuration without enlargement. No abnormality seen in the posterior fossa. Bone windows reveal no calvarial abnormality. There are several small scalp lesions slightly hyperdense left high frontal and right posterior parietal. They measure 150 Hounsfield units and are likely neurofibromas. CT/CT head/brain wo IV con IMPRESSION: No acute intracranial process seen. Enhancing scalp lesions along the right frontal and left parietal region question small neurofibromas..
[2023-02-24 13:15] VITALS: BP 170/89; PULSE 89; RESP 18; TEMP 36.7; O2SAT 98; BMI 39.1
--- NOTE | 2023-02-24 13:15 | ED_ITS ---
HPI - General Adult General Chief complaint: General Medical <GIOVANNI Linares - Last Filed: 02/24/23 13:21> Stated complaint: Blood pressure <GIOVANNI Linares - Last Filed: 02/24/23 13:21> Time Seen by Provider: 02/24/23 18:05 <GIOVANNI Linares - Last Filed: 02/24/23 13:21> Source: patient <Kasi Bryan MD - Last Filed: 02/24/23 19:36> Mode of arrival: ambulatory <Kasi Bryan MD - Last Filed: 02/24/23 19:36> Limitations: no limitations <Kasi Bryan MD - Last Filed: 02/24/23 19:36> History of Present Illness HPI narrative: 42-year-old female with history of hypertension presents with generalized unwellness. Patient was at work yesterday when she started to feel little bit of lightheadedness, extremity discomfort, no new significant chest pain, pa lpitations. Her symptoms are moderate in nature. She decided to go to stop and shop and check her blood pressure. Was noted to be significantly elevated. She drove home continue to feel generally unwell. She woke this morning with headache. The headache was moderate in nature. The headache was frontal. Did not radiate. Associated with photophobia no phonophobia. She denies any nausea any chest pain at this time. She will back to stop and shop again and checked her blood pressure and was noted to be elevated again. She called her primary care provider was referred to the emergency department for evaluation. Patient denies any fevers, chills, sweats. She advocates that she is taking her medications appropriately. He does have a diet that is fairly high in salt. She denies any lower extremity edema or difficulty breathing. Patient takes lisinopril 10 mg daily. <Kasi Bryan MD - Last Filed: 02/24/23 19:36> Related Data Home medications: Previous Rx's Medication Instructions Recorded dicyclomine 20 mg tablet 20 mg PO TID PRN abdominal 04/22/21 discomfort #30 tabs ondansetron 4 mg disintegrating 4 mg PO Q8H PRN nausea and 04/22/21 tablet vomiting #20 tabs sucralfate 100 mg/mL oral 5 ml PO TID #1,000 mL 04/22/21 suspension (Carafate) azithromycin 250 mg tablet See Rx Instructions PO .COMPLEX #6 11/16/21 tabs dexamethasone 6 mg tablet 6 mg PO DAILY #7 tabs 11/16/21 (Decadron) doxycycline hyclate 100 mg tablet 100 mg PO BID 7 days #14 tabs 11/16/21 triamcinolone acetonide 55 mcg 2 spray intranasal DAILY 7 days 11/16/21 nasal spray aerosol (Nasacort) #16.9 mL lisinopril 10 mg tablet 20 mg PO DAILY #20 tabs 02/24/23 <GIOVANNI Linares - Last Filed: 02/24/23 13:21> Allergies/adverse reactions: Allergies Allergy/AdvReac Type Severity Reaction Status Date / Time Penicillins Allergy Rash Verified 02/24/23 13:20 <GIOVANNI Linares - Last Filed: 02/24/23 13:21> [facility] Past Medical History Medical History: Medical History Depression GERD (gastroesophageal reflux disease) HTN (hypertension) <GIOVANNI Linares - Last Filed: 02/24/23 13:21> Social History Social History: Social History Patient Tobacco Use Status: Never used Tobacco Advance Directives: No Advance Directives Information Provided: Yes <GIOVANNI Linares - Last Filed: 02/24/23 13:21> Physical Exam ED Vital Signs: Vital Signs - 24 hr 02/24/23 13:15 02/24/23 19:16 Temperature 98.0 F 98.7 F Pulse Rate 89 80 Respiratory Rate 18 16 Blood Pressure 170/89 H 144/87 H Pulse Oximetry 98 97 Oxygen Delivery Method Room Air Room Air BMI result Body Mass Index 39.1 <GIOVANNI Linares - Last Filed: 02/24/23 13:21> Vital Signs - 24 hr 02/24/23 13:15 02/24/23 19:16 Temperature 98.0 F 98.7 F Pulse Rate 89 80 Respiratory Rate 18 16 Blood Pressure 170/89 H 144/87 H Pulse Oximetry 98 97 Oxygen Delivery Method Room Air Room Air BMI result Body Mass Index 39.1 <Kasi Bryan MD - Last Filed: 02/24/23 19:36> GEN: Well developed, no acute distress, alert, oriented HEENT: Normocephalic, atraumatic, normal external ears, nose appears normal, no oropharyngeal edema or exudates Eyes: Normal to appearance Neck: Supple, no lymphadenopathy Respiratory: Talks in complete sentences, no respiratory distress, clear to auscultation bilaterally Cardiovascular: Regular rate and rhythm, no murmurs rubs or gallops Abdomen: Soft, nontender, nondistended, no guarding, no rebound Back: No CVA tenderness Extremities: No clubbing cyanosis or edema Neurologic: No focal neurologic deficits, cranial nerves 2-12 intact, strength is 5/5 bilaterally Skin: No rash <Kasi Bryan MD - Last Filed: 02/24/23 19:36> Course Course Course Narrative: RME: 42yo F w/PMHx HTN on Lisinopril c/o elevated BP (185/117) with CP, dizziness, OQUENDO & UE weakness since yesterday, mildly improving today. Also reports confusion feeling foggy. Denies taking AC. Admits to taking her Lisino pril today BP 170/89 in triage. No focal deficits on exam EKG, labs, UA, Head CT ordered Full HPI, ROS and PE to be performed by primary ED provider. <GIOVANNI Linares - Last Filed: 02/24/23 13:21> Reevaluation(s) Reevaluation #1: Workup is complete. There were couple of abnormalities that were discussed with patient including the possibility of neurofibromas on CT scan. Recommended follow-up with an MRI in in neurology consultation. She is clearly anxious about these findings. I did discuss the malignant in nature. However, close follow-up is required. Additionally, her blood sugar was noted to be approximately 130. I doubt she has diabetes is. This is most likely a stress reaction. <Kasi Bryan MD - Last Filed: 02/24/23 19:36> Time: 19:32 <Kasi Bryan MD - Last Filed: 02/24/23 19:36> Medical Decision Making Medical Decision Making MDM Narrative: 42-year-old female with history of hypertension presents with some generalized symptoms including headache, unwellness, extremity discomfort, lightheadedness. Her blood pressure has been elevated over the last couple days. Typically her blood pressures been well controlled. Her examination is unremarkable. Patient have a CT scan given her symptoms of headache. I doubt subarachnoid hemorrhage, subdural hematoma, or epidural hematoma. She has no fever, neck stiffness or nuchal rigidity to suggest any of these diagnoses. I doubt meningitis. Most likely this is related to hypertensive urgency. Other possible etiologies could be renal dysfunction, hypokalemia, essential hypertension, medication noncompliance, dietary noncompliance. <Kasi Bryan MD - Last Filed: 02/24/23 19:36> Differential Diagnosis Differential Diagnoses: The differential diagnosis associated with the presentation includes (See above) <Kasi Bryan MD - Last Filed: 02/24/23 19:36> Admission/Observation Consideration of admission/observation: Escalation of care including admission/observation considered <Kasi Bryan MD - Last Filed: 02/24/23 19:36> Lab Data MDM Lab Attestation statement: I reviewed the patient's lab results. <Kasi Bryan MD - Last Filed: 02/24/23 19:36> Result Diagrams: 02/24/23 13:54 02/24/23 13:54 <GIOVANNI Linares - Last Filed: 02/24/23 13:21> Labs: Lab Results 02/24/23 02/24/23 02/24/23 Range/Units 13:54 13:54 13:54 WBC 7.6 (4.8-10.8) X10*3/uL RBC 4.54 (4.20-5.50) X10*6/uL Hgb 13.6 (12.0-16.0) g/dl Hct 41.7 (37.0-47.0) % MCV 91.9 (80.0-98.0) fL MCH 30.0 (27.0-33.0) pg MCHC 32.6 (31.0-35.0) g/dl RDW 12.2 (11.0-16.0) % Plt Count 288 (160-400) X10*3/uL MPV 10.3 (9.4-12.3) fL Immature Gran % (Auto) 0.3 (0.0-0.4) % Neut % (Auto) 62.0 (45-73) % Lymph % (Auto) 29.8 (20-40) % Holmes % (Auto) 6.6 (2-11) % Eos % (Auto) 0.8 (0-4) % Baso % (Auto) 0.5 (0-2) % Lymph # (Auto) 2.3 (1.2-4.9) X10*3/uL Holmes # (Auto) 0.5 (0.1-1.2) X10*3/uL Eos # (Auto) 0.1 (0.0-0.4) X10*3/uL Baso # (Auto) 0.0 (0.0-0.2) X10*3/uL Abs Immat Gran (auto) 0.02 (0.00-0.03) X10*3/uL Absolute Neuts (auto) 4.7 (2.0-8.3) x10*3/uL Absolute Nucleated RBC 0.000 (0.0-0.012) X10*3/uL Nucleated RBC % (auto) 0.0 (0.0-0.2) /100WBC PT 10.6 (10.0-13.1) SEC INR 0.9 (0.9-1.1) Sodium 142 (135-145) mmol/L Potassium 4.3 (3.3-5.1) mmol/L Chloride 109 H (96-108) mmol/L Carbon Dioxide 26 (22-29) mmol/L Anion Gap 11 L (12-20) BUN 11 (9-16) mg/dL Creatinine 0.87 (0.5-1.4) mg/dL Estim Creat Clear Calc 100.0 Estimated GFR > 60 Random Glucose 133 H (60-115) mg/dL Calcium 9.0 (8.4-10.2) mg/dL Magnesium 1.8 (1.6-2.6) mg/dL Total Bilirubin 0.3 (0.0-1.0) mg/dL Direct Bilirubin 0.1 (0.0-0.5) mg/dL AST 14 (5-31) U/L ALT 21 (0-31) U/L Alkaline Phosphatase 53 (39-117) U/L Troponin I High Sens (<3.5-17.0) ng/L Total Protein 6.5 (6.5-8.0) g/dL Albumin 3.9 (3.5-5.0) g/dL 02/24/23 Range/Units 13:54 WBC (4.8-10.8) X10*3/uL RBC (4.20-5.50) X10*6/uL Hgb (12.0-16.0) g/dl Hct (37.0-47.0) % MCV (80.0-98.0) fL MCH (27.0-33.0) pg MCHC (31.0-35.0) g/dl RDW (11.0-16.0) % Plt Count (160-400) X10*3/uL MPV (9.4-12.3) fL Immature Gran % (Auto) (0.0-0.4) % Neut % (Auto) (45-73) % Lymph % (Auto) (20-40) % Holmes % (Auto) (2-11) % Eos % (Auto) (0-4) % Baso % (Auto) (0-2) % Lymph # (Auto) (1.2-4.9) X10*3/uL Holmes # (Auto) (0.1-1.2) X10*3/uL Eos # (Auto) (0.0-0.4) X10*3/uL Baso # (Auto) (0.0-0.2) X10*3/uL Abs Immat Gran (auto) (0.00-0.03) X10*3/uL Absolute Neuts (auto) (2.0-8.3) x10*3/uL Absolute Nucleated RBC (0.0-0.012) X10*3/uL Nucleated RBC % (auto) (0.0-0.2) /100WBC PT (10.0-13.1) SEC INR (0.9-1.1) Sodium (135-145) mmol/L Potassium (3.3-5.1) mmol/L Chloride (96-108) mmol/L Carbon Dioxide (22-29) mmol/L Anion Gap (12-20) BUN (9-16) mg/dL Creatinine (0.5-1.4) mg/dL Estim Creat Clear Calc Estimated GFR Random Glucose (60-115) mg/dL Calcium (8.4-10.2) mg/dL Magnesium (1.6-2.6) mg/dL Total Bilirubin (0.0-1.0) mg/dL Direct Bilirubin (0.0-0.5) mg/dL AST (5-31) U/L ALT (0-31) U/L Alkaline Phosphatase (39-117) U/L Troponin I High Sens < 2.7 (<3.5-17.0) ng/L Total Protein (6.5-8.0) g/dL Albumin (3.5-5.0) g/dL <GIOVANNI Linares - Last Filed: 02/24/23 13:21> Lab Results 02/24/23 02/24/23 02/24/23 Range/Units 13:54 13:54 13:54 WBC 7.6 (4.8-10.8) X10*3/uL RBC 4.54 (4.20-5.50) X10*6/uL Hgb 13.6 (12.0-16.0) g/dl Hct 41.7 (37.0-47.0) % MCV 91.9 (80.0-98.0) fL MCH 30.0 (27.0-33.0) pg MCHC 32.6 (31.0-35.0) g/dl RDW 12.2 (11.0-16.0) % Plt Count 288 (160-400) X10*3/uL MPV 10.3 (9.4-12.3) fL Immature Gran % (Auto) 0.3 (0.0-0.4) % Neut % (Auto) 62.0 (45-73) % Lymph % (Auto) 29.8 (20-40) % Holmes % (Auto) 6.6 (2-11) % Eos % (Auto) 0.8 (0-4) % Baso % (Auto) 0.5 (0-2) % Lymph # (Auto) 2.3 (1.2-4.9) X10*3/uL Holmes # (Auto) 0.5 (0.1-1.2) X10*3/uL Eos # (Auto) 0.1 (0.0-0.4) X10*3/uL Baso # (Auto) 0.0 (0.0-0.2) X10*3/uL Abs Immat Gran (auto) 0.02 (0.00-0.03) X10*3/uL Absolute Neuts (auto) 4.7 (2.0-8.3) x10*3/uL Absolute Nucleated RBC 0.000 (0.0-0.012) X10*3/uL Nucleated RBC % (auto) 0.0 (0.0-0.2) /100WBC PT 10.6 (10.0-13.1) SEC INR 0.9 (0.9-1.1) Sodium 142 (135-145) mmol/L Potassium 4.3 (3.3-5.1) mmol/L Chloride 109 H (96-108) mmol/L Carbon Dioxide 26 (22-29) mmol/L Anion Gap 11 L (12-20) BUN 11 (9-16) mg/dL Creatinine 0.87 (0.5-1.4) mg/dL Estim Creat Clear Calc 100.0 Estimated GFR > 60 Random Glucose 133 H (60-115) mg/dL Calcium 9.0 (8.4-10.2) mg/dL Magnesium 1.8 (1.6-2.6) mg/dL Total Bilirubin 0.3 (0.0-1.0) mg/dL Direct Bilirubin 0.1 (0.0-0.5) mg/dL AST 14 (5-31) U/L ALT 21 (0-31) U/L Alkaline Phosphatase 53 (39-117) U/L Troponin I High Sens (<3.5-17.0) ng/L Total Protein 6.5 (6.5-8.0) g/dL Albumin 3.9 (3.5-5.0) g/dL 02/24/23 Range/Units 13:54 WBC (4.8-10.8) X10*3/uL RBC (4.20-5.50) X10*6/uL Hgb (12.0-16.0) g/dl Hct (37.0-47.0) % MCV (80.0-98.0) fL MCH (27.0-33.0) pg MCHC (31.0-35.0) g/dl RDW (11.0-16.0) % Plt Count (160-400) X10*3/uL MPV (9.4-12.3) fL Immature Gran % (Auto) (0.0-0.4) % Neut % (Auto) (45-73) % Lymph % (Auto) (20-40) % Holmes % (Auto) (2-11) % Eos % (Auto) (0-4) % Baso % (Auto) (0-2) % Lymph # (Auto) (1.2-4.9) X10*3/uL Holmes # (Auto) (0.1-1.2) X10*3/uL Eos # (Auto) (0.0-0.4) X10*3/uL Baso # (Auto) (0.0-0.2) X10*3/uL Abs Immat Gran (auto) (0.00-0.03) X10*3/uL Absolute Neuts (auto) (2.0-8.3) x10*3/uL Absolute Nucleated RBC (0.0-0.012) X10*3/uL Nucleated RBC % (auto) (0.0-0.2) /100WBC PT (10.0-13.1) SEC INR (0.9-1.1) Sodium (135-145) mmol/L Potassium (3.3-5.1) mmol/L Chloride (96-108) mmol/L Carbon Dioxide (22-29) mmol/L Anion Gap (12-20) BUN (9-16) mg/dL Creatinine (0.5-1.4) mg/dL Estim Creat Clear Calc Estimated GFR Random Glucose (60-115) mg/dL Calcium (8.4-10.2) mg/dL Magnesium (1.6-2.6) mg/dL Total Bilirubin (0.0-1.0) mg/dL Direct Bilirubin (0.0-0.5) mg/dL AST (5-31) U/L ALT (0-31) U/L Alkaline Phosphatase (39-117) U/L Troponin I High Sens < 2.7 (<3.5-17.0) ng/L Total Protein (6.5-8.0) g/dL Albumin (3.5-5.0) g/dL <Kasi Bryan MD - Last Filed: 02/24/23 19:36> Independent Interpretation I performed an independent interpretation of an: EKG (Normal sinus rhythm heart rate 78, no acute ST elevations depressions, nonspecific T-wave change noted in AVF) and CT Scan ( 0042 CT/CT head/brain wo IV con IMPRESSION: No acute intracranial process seen. Enhancing scalp lesions along the right frontal and left parietal region question small neurofibromas.. Dictated By:Raman Cruz MDSigned By:<Electronically signed by Raman Cruz MD in [place]>02/24/23) <Kasi Bryan MD - Last Filed: 02/24/23 19:36> Tests considered The following testing was considered but not selected: MRI brain <Kasi Bryan MD - Last Filed: 02/24/23 19:36> Prescription Management I considered prescription management with: Pain Medication <Kasi Bryan MD - Last Filed: 02/24/23 19:36> Chronic Conditions Patient?s care impacted by: Hypertension <Kasi Bryan MD - Last Filed: 02/24/23 19:36> Discharge Plan Discharge Clinical Impression: Abnormal CT of brain, Hypertensive urgency, Frontal headache <GIOVANNI Linares - Last Filed: 02/24/23 13:21> Patient Disposition: Home, Self-Care <GIOVANNI Linares - Last Filed: 02/24/23 13:21> Instructions: Acute Headache (DC), Hypertensive Crisis (ED) <GIOVANNI Linares - Last Filed: 02/24/23 13:21> Additional Instructions: In addition to her elevated blood pressure, and her symptoms, it was noted on her CT scan the possibility of benign tumors called neurofibromas. I would recommend following up with her primary care provider and/or a neurologist with MRI to further characterize. These lesions appear to be benign nature. <GIOVANNI Linares - Last Filed: 02/24/23 13:21> Prescriptions: New lisinopril 10 mg tablet 20 mg PO DAILY Qty: 20 0RF No Action dicyclomine 20 mg tablet 20 mg PO TID PRN (Reason: abdominal discomfort) Qty: 30 0RF ondansetron 4 mg tablet,disintegrating 4 mg PO Q8H PRN (Reason: nausea and vomiting) Qty: 20 0RF sucralfate [Carafate] 100 mg/mL suspension 5 ml PO TID Qty: 1000 0RF Rx Instructions: swish in mouth and swallow; use after food/drink azithromycin 250 mg tablet See Rx Instructions .ROUTE .COMPLEX Qty: 6 0RF Rx Instructions: For 250 mg dose pack: take 500 mg today (day 1), then 250 mg for 4 days (days 2-5) triamcinolone acetonide [Nasacort] 55 mcg aerosol,spray 2 spray intranasal DAILY 7 Days Qty: 16.9 0RF Rx Instructions: administer into each nostril dexamethasone [Decadron] 6 mg tablet 6 mg PO DAILY Qty: 7 0RF doxycycline hyclate 100 mg tablet 100 mg PO BID 7 Days Qty: 14 0RF <GIOVANNI Linares - Last Filed: 02/24/23 13:21> Referrals: Rosanne Bui MD [Physician] - 10 days Marky Tam MD [Primary Care Provider] - 5 days <GIOVANNI Linares - Last Filed: 02/24/23 13:21>
--- NOTE | 2023-02-24 13:17 | ECG_ITS ---
Test Reason : cp Blood Pressure : / mmHG Vent. Rate : 078 BPM Atrial Rate : 078 BPM P-R Int : 152 ms QRS Dur : 084 ms QT Int : 386 ms P-R-T Axes : 011 -09 012 degrees QTc Int : 440 ms Normal sinus rhythm Normal ECG When compared with ECG of 16-NOV-2021 15:45, No significant change was found Referred By: Ernestina Guallpa Electronically Signed By:Anastacio Cash
[2023-02-24 14:10] LABS: MANUAL DIFF FLAG NO
[2023-02-24 14:13] LABS: Basophils Percent Auto 0.5 % (0-2); Eosinophils Absolute Auto 0.1 X10*3/uL (0.0-0.4); Eosinophils Percent Auto 0.8 % (0-4); Hematocrit 41.7 % (37.0-47.0); Hemoglobin 13.6 g/dl (12.0-16.0); Imm Gran Abs Auto 0.02 X10*3/uL (0.00-0.03); Imm Gran Pct Auto 0.3 % (0.0-0.4); Lymphocytes Absolute Auto 2.3 X10*3/uL (1.2-4.9); Lymphocytes Percent Auto 29.8 % (20-40); Mean Corpuscular HGB Conc 32.6 g/dl (31.0-35.0); Mean Corpuscular Volume 91.9 fL (80.0-98.0); Mean Platelet Volume 10.3 fL (9.4-12.3); Monocytes Absolute Auto 0.5 X10*3/uL (0.1-1.2); Monocytes Percent Auto 6.6 % (2-11); Neutrophils Absolute Auto 4.7 x10*3/uL (2.0-8.3); Platelet Count 288 X10*3/uL (160-400); Red Blood Count 4.54 X10*6/uL (4.20-5.50); Red Cell Distribution Width 12.2 % (11.0-16.0); White Blood Count 7.6 X10*3/uL (4.8-10.8)
[2023-02-24 14:23] LABS: INTERNATIONAL NORM RATIO 0.9 (0.9-1.1); Prothrombin Time 10.6 SEC (10.0-13.1)
[2023-02-24 14:29] LABS: Alanine Aminotransferase 21 U/L (0-31); Albumin Level 3.9 g/dL (3.5-5.0); Alkaline Phosphatase 53 U/L (39-117); Anion Gap 11 (12-20); Aspartate Amino Transferase 14 U/L (5-31); Bilirubin Direct 0.1 mg/dL (0.0-0.5); Bilirubin Total 0.3 mg/dL (0.0-1.0); Blood Urea Nitrogen 11 mg/dL (9-16); Carbon Dioxide 26 mmol/L (22-29); Chloride 109 mmol/L (96-108); Estimated Glomerular Filt Rate > 60; Glucose Random 133 mg/dL (60-115); Magnesium 1.8 mg/dL (1.6-2.6); Potassium 4.3 mmol/L (3.3-5.1); Sodium 142 mmol/L (135-145); Total Protein 6.5 g/dL (6.5-8.0)
[2023-02-24 14:36] LABS: Troponin-I High Sensitivity < 2.7 ng/L (<3.5-17.0)
--- NOTE | 2023-02-24 19:06 | PC.NURSE ---
no nurse to nurse report recvd
[2023-02-24 19:16] VITALS: BP 144/87; PULSE 80; RESP 16; TEMP 37.1; O2SAT 97
[2023-02-24 19:58] VITALS: BP 158/99; PULSE 76; RESP 16; TEMP 36.9; O2SAT 98
--- NOTE | 2023-02-24 20:00 | MHC.EDTECH ---
2000 rounding done ,vitals sign taken ,urine sample collected and sent to lab .
[2023-02-24 20:15] VITALS: BP 172/105; PULSE 80; RESP 20; TEMP 36.7; O2SAT 98
--- NOTE | 2023-02-24 20:17 | PC.NURSE ---
no apparent distress discharge instructions given and explained aox4 pt ambulates safely and independently chest pain resolved
--- NOTE | 2023-02-24 20:18 | PC.NURSE ---
Addendum entered by Kiersten Baird 02/24/23 20:28: provider aware lisinopril 10mg to follow d/c Original Note: vs assessed pt's bp 172/105 to follow up w/ provider prior to d/c
[2023-02-24 20:21] LABS: Appearance Urine Clear; Color Urine Yellow; Glucose Urine UA Negative (Negative); Leukocyte Esterase Urine Negative (Negative); Nitrite Urine Negative (Negative); PH 6.5 (5.0-9.0); Specific Gravity - Urine <= 1.005 (1.005-1.025); UMIC TRIGGER UACC YES; Urine Blood Trace (Negative); Urine Ketones Negative (Negative); Urine Protein Negative (Neg-Trace)
[2023-02-24] MEDS: lisinopriL 10 MG TABLET PO (20:27)
[2023-02-24 20:30] LABS: Bacteria Urine None Seen (None Seen); Hyaline Casts Urine 0-2 /LPF (0-2); RBC Urine 0-2 /HPF (0-2); Squamous Epithelial Cell Urine 0-2 /HPF (0-2); WBC Urine 0-5 /HPF (0-5)
== END 2023-02-24 20:26 | disposition home or self-care (01) ==
PROVIDERS: Physician Assistant; Emergency Provider Emergency Medicine; PCP Internal Medicine
DX: I16.0 Hypertensive urgency (principal); R51.9 Headache, unspecified; R93.0 Abnormal findings on diagnostic imaging of skull and head, not elsewhere classified; Z79.899 Other long term (current) drug therapy
CPT/HCPCS: 36415; 70450; 80048; 80076; 81001; 83735; 84484; 85025; 85610; 93005; 99284